=== PATIENT | female | born 1985 | race African-American/Black ===

== ENCOUNTER 2018-10-01 09:35 | Inpatient (IN) ==
[2018-10-01] MEDS ORDERED: CITRIC ACID/SODIUM CITRATE 30 ML UDCUP PO ONE (09:59)
[2018-10-01] MEDS ORDERED: ceFAZolin 2,000 MG in PREMIX 1 EACH IV ONE (09:59)
[2018-10-01] MEDS ORDERED: FAMOTIDINE 20 MG/2 ML VIAL IV ONE (09:59)
[2018-10-01] MEDS ORDERED: LACTATED RINGERS 1,000 ML IV ONE (10:01)
[2018-10-01 10:18] LABS: Basophils % 0.2 % (0.0-0.8); Eosinophils % 0.5 % (0.00-10.9); Hematocrit 36.9 VOL% (35.7-47.0); Hemoglobin 11.4 GM/DL (12.0-16.0); Immature Granulocytes % 0.5 %; Immature Granulocytes Absolute 0.04 #; Lymphocytes # 1.6 10*3/uL (1.4-4.0); Lymphocytes % 19.8 % (21.3-54.2); Mean Corpuscular HGB Conc 30.9 GM/DL (32-36); Mean Corpuscular Hemoglobin 28 PG (27-34); Mean Corpuscular Volume 90.9 FL (87-102); Monocytes # 0.8 10*3/uL (0.11-0.8); Monocytes % 9.4 % (1.7-12.7); NRBC # 0.02 10*3/uL; Neutrophils # 5.6 10*3/uL (1.4-7.4); Neutrophils % 69.6 % (38.7-73.9); Platelet Count 240 T/CUMM (130-400); Red Blood Count 4.06 MC/CUMM (3.8-5.5); Red Cell Distribution Width 14.8 % (9.3-17.3); White Blood Count 8.1 T/CUMM (4-12)
[2018-10-01 10:43] LABS: Albumin 2.7 G/DL (3.4-5.0); Bilirubin,Total 0.5 MG/DL (0.2-1.0); Calcium 8.9 MG/DL (8.5-10.1); Osmolality,Calculated 274.5 MOS/KG (273-304); Total Protein 7.2 G/DL (6.4-8.3)
[2018-10-01] MEDS ORDERED: OXYTOCIN 10 UNIT/ML VIAL IM STA (11:24)
[2018-10-01] MEDS ORDERED: OXYTOCIN/LR 30 UNIT/1,000 ML BAG IV ONE (11:24)
[2018-10-01] MEDS ORDERED: OXYTOCIN/LR 20 UNIT/1,000 ML BAG IV SCH (11:30)
[2018-10-01] MEDS: LACTATED RINGERS 1,000 ML IV SCH ×2 (11:56→12:54)
[2018-10-01] MEDS ORDERED: ACETAMINOPHEN 325 MG TABLET PO PRN (14:05)
[2018-10-01] MEDS ORDERED: MAGNESIUM HYDROXIDE SUSP 30 ML UDCUP PO PRN (14:05)
[2018-10-01] MEDS ORDERED: OXYTOCIN/LR 20 UNIT/1,000 ML BAG IV ONE (14:05)
[2018-10-01] MEDS ORDERED: SIMETHICONE CHEW 80 MG TABLET PO PRN (14:05)
[2018-10-01] MEDS ORDERED: ONDANSETRON 4 MG/2 ML VIAL IV PRN (14:05)
[2018-10-01] MEDS ORDERED: RHO(D) IMMUNE GLOBULIN 300 MCG SYRINGE IM ONE (14:05)
[2018-10-01] MEDS ORDERED: BUPIVACAINE SPINAL 0.75% 2 ML AMP SPINAL ONE (14:16)
[2018-10-01] MEDS ORDERED: PHENYLEPHRINE 1 MG/10 ML SYRINGE IV ONE (14:17)
[2018-10-01] MEDS ORDERED: MORPHINE 10 MG/10 ML VIAL ONE (14:17)
[2018-10-01] MEDS ORDERED: ONDANSETRON 4 MG/2 ML VIAL ONE (14:17)
[2018-10-01] MEDS ORDERED: ceFAZolin 1,000 MG in SYRINGE 1 EACH IV SCH (14:30)
[2018-10-01] MEDS ORDERED: LACTATED RINGERS 1,000 ML IV SCH (14:30)
[2018-10-01 15:12] LABS: Apearance,Urine CLEAR (Clear); Bacteria,Urine Occasional /HPF (Few); Bilirubin,Urine Negative (Negative); Blood, Urine Negative (Negative); Glucose,Urine (UA) Negative (Negative); Ketones,Urine Negative (Negative); Nitrite,Urine Negative (Negative); Protein,Urine Negative; RBC,Urine 1 /HPF (0-4); Squamous Epithelial Cell,Urine Occasional /HPF (0-10); Urine Color Straw (Yellow); Urine Specific Gravity 1.005 (1.001-1.035); Urine Urobilinogen < 2.0 EU/DL (0.2-1.0)
[2018-10-01] MEDS ORDERED: MEPERIDINE 50 MG/1 ML VIAL IV PRN (18:05)
[2018-10-01 21:50] LABS: Basophils % 0.1 % (0.0-0.8); Eosinophils % 0.3 % (0.00-10.9); Hematocrit 32.4 VOL% (35.7-47.0); Hemoglobin 10.6 GM/DL (12.0-16.0); Immature Granulocytes % 0.5 %; Immature Granulocytes Absolute 0.06 #; Lymphocytes # 1.3 10*3/uL (1.4-4.0); Lymphocytes % 11.5 % (21.3-54.2); Mean Corpuscular HGB Conc 32.7 GM/DL (32-36); Mean Corpuscular Hemoglobin 30 PG (27-34); Mean Corpuscular Volume 90.5 FL (87-102); Mean Platelet Volume 11.5 FL (9.6-12.0); Monocytes % 8.6 % (1.7-12.7); Neutrophils # 8.9 10*3/uL (1.4-7.4); Platelet Count 195 T/CUMM (130-400); Red Blood Count 3.58 MC/CUMM (3.8-5.5); Red Cell Distribution Width 14.7 % (9.3-17.3); White Blood Count 11.2 T/CUMM (4-12)
[2018-10-01] MEDS: DOCUSATE SODIUM 100 MG CAPSULE PO SCH (22:05)
[2018-10-01] MEDS: ceFAZolin 1,000 MG in SYRINGE 1 EACH IV SCH (22:06)
[2018-10-02] MEDS: ceFAZolin 1,000 MG in SYRINGE 1 EACH IV SCH (05:45)
[2018-10-02 05:53] LABS: Basophils % 0.1 % (0.0-0.8); Eosinophils % 0.3 % (0.00-10.9); Hematocrit 29.6 VOL% (35.7-47.0); Hemoglobin 9.5 GM/DL (12.0-16.0); Immature Granulocytes % 0.4 %; Immature Granulocytes Absolute 0.04 #; Lymphocytes # 1.1 10*3/uL (1.4-4.0); Lymphocytes % 11.1 % (21.3-54.2); Mean Corpuscular HGB Conc 32.1 GM/DL (32-36); Mean Corpuscular Hemoglobin 29 PG (27-34); Mean Corpuscular Volume 89.2 FL (87-102); Mean Platelet Volume 12.3 FL (9.6-12.0); Monocytes % 9.8 % (1.7-12.7); Neutrophils # 7.6 10*3/uL (1.4-7.4); Neutrophils % 78.3 % (38.7-73.9); Platelet Count 195 T/CUMM (130-400); Red Blood Count 3.32 MC/CUMM (3.8-5.5); Red Cell Distribution Width 14.6 % (9.3-17.3); White Blood Count 9.7 T/CUMM (4-12)
[2018-10-02] MEDS: IBUPROFEN 800 MG TABLET PO PRN ×2 (06:59→22:48)
[2018-10-02] MEDS: METOCLOPRAMIDE 10 MG/2 ML VIAL IV SCH ×2 (08:23→15:59)
[2018-10-02] MEDS: DOCUSATE SODIUM 100 MG CAPSULE PO SCH ×2 (08:23→20:07)
[2018-10-02] MEDS: FERROUS SULFATE 325 MG TABLET PO SCH ×2 (08:23→20:07)
[2018-10-02] MEDS: MULTIVITAMIN (PRENATAL) TABLET PO SCH (08:23)
[2018-10-02] MEDS: MAGNESIUM HYDROXIDE SUSP 30 ML UDCUP PO SCH ×2 (11:27→20:07)
[2018-10-02] MEDS: SIMETHICONE CHEW 80 MG TABLET PO SCH ×4 (11:27→20:07)
[2018-10-03] MEDS: METOCLOPRAMIDE 10 MG/2 ML VIAL IV SCH ×3 (00:02→16:32)
[2018-10-03] MEDS: MAGNESIUM HYDROXIDE SUSP 30 ML UDCUP PO SCH ×2 (08:58→21:02)
[2018-10-03] MEDS: DOCUSATE SODIUM 100 MG CAPSULE PO SCH ×2 (08:58→21:02)
[2018-10-03] MEDS: FERROUS SULFATE 325 MG TABLET PO SCH ×2 (08:58→21:02)
[2018-10-03] MEDS: SIMETHICONE CHEW 80 MG TABLET PO SCH ×4 (08:58→21:02)
[2018-10-03] MEDS: MULTIVITAMIN (PRENATAL) TABLET PO SCH (08:58)
[2018-10-03] MEDS ORDERED: BISACODYL 10 MG SUPP RECTAL ONE (11:42)
[2018-10-03] MEDS: IBUPROFEN 800 MG TABLET PO PRN (17:06)
[2018-10-04] MEDS: SIMETHICONE CHEW 80 MG TABLET PO SCH (09:24)
[2018-10-04] MEDS: FERROUS SULFATE 325 MG TABLET PO SCH (09:24)
[2018-10-04] MEDS: IBUPROFEN 800 MG TABLET PO PRN (09:24)
[2018-10-04] MEDS: MULTIVITAMIN (PRENATAL) TABLET PO SCH (09:24)
[2018-10-04] MEDS: DOCUSATE SODIUM 100 MG CAPSULE PO SCH (09:24)
[2018-10-04] MEDS: MAGNESIUM HYDROXIDE SUSP 30 ML UDCUP PO SCH (09:26)
[2018-10-04 11:30] VITALS: BP 109/66
== END 2018-10-04 13:45 | disposition home or self-care (01) | DRG 788 ==
LOC: N.LDOUT 09:35 → N.LD 09:37 → N.OB 16:53
PROVIDERS: ADMIT Obstetrics & Gynecology; ATTEND Obstetrics & Gynecology
PROC: LDCSECT (ICD-10-PCS; 2018-10-01 12:55)